=== PATIENT | female | born 1945 | race Asian ===

== ENCOUNTER 2017-03-24 09:18 | Emergency (ER) | payer OTHER ==
[~2017-03-24] VITALS: Ht 149.9 cm; Wt 61.4 kg
[~2017-03-24 09:18] MED LIST: ASPI-1061 PO; HYDR12.54 PO; LISI40TA4 PO; TRAM50TA4 PO
[2017-03-24 09:31] VITALS: BP 167/81
== END 2017-03-24 10:49 | disposition home or self-care (01) ==
LOC: EMS 09:20
DX: S20.211A Contusion of right front wall of thorax, initial encounter (principal); M25.561 Pain in right knee; I10 Essential (primary) hypertension; I25.10 Atherosclerotic heart disease of native coronary artery without angina pectoris; M19.90 Unspecified osteoarthritis, unspecified site; Z79.82 Long term (current) use of aspirin; V89.2XXA Person injured in unspecified motor-vehicle accident, traffic, initial encounter; Y93.89 Activity, other specified; Y92.89 Other specified places as the place of occurrence of the external cause; Y99.8 Other external cause status
CPT/HCPCS: 99283